=== PATIENT | female | born 1950 | race Two or more races ===

== ENCOUNTER 2019-12-11 15:19 | Inpatient (IN) | payer OTHER ==
[~2019-12-11] VITALS: Ht 160 cm; Wt 57.2 kg
--- NOTE | 2019-12-11 15:20 | NUR ---
CALE 80 FROM HOME C/O NAUSEA AND VOMITING. PT STATES SHE FEELS DIZZY AFTER VOMIT BUT NO LOSS OF CONSCIOUSNESS. NO FEVER NOTED. NO TRAUMA. NO FALL. NO SEIZURE. PT ABLE TO AMBULATE. ABLE TO MOVE ALL EXTREMITIES. DF=005HK/DL IN THE FIELD. AWAITING FOR MD RAE Addendum: 12/11/19 at 2053 by SHY ATTEMPTED TO GIVE REPORT, NURSE NOT AVAILABLE
--- NOTE | 2019-12-11 15:45 | NUR ---
md at bedside for evaluation
[2019-12-11] MEDS ORDERED: MECLIZINE HCL 12.5 MG TABLET PO ONE (16:00)
[2019-12-11] MEDS ORDERED: ONDANSETRON HCL/PF 4 MG/2 ML VIAL IVP ONE (16:00)
[2019-12-11] MEDS ORDERED: ONDANSETRON HCL/PF 4 MG/2 ML VIAL ONE (16:12)
[2019-12-11] MEDS ORDERED: MECLIZINE HCL 25 MG TABLET ONE (16:12)
--- NOTE | 2019-12-11 16:15 | NUR ---
PT OUT FOR CT
[2019-12-11 16:16] LABS: BASOPHILS % (AUTO) 0.4 % (0.0-2.0); EOSINOPHILS % (AUTO) 1.3 % (0.0-6.0); HEMATOCRIT 42 % (33-45); HEMOGLOBIN 14.1 g/dL (11.5-14.8); LYMPHOCYTES # (AUTO) 2.1 /CMM (0.8-4.8); LYMPHOCYTES % (AUTO) 20.2 % (20.0-44.0); MEAN CORPUSCULAR HGB CONC 34 g/dl (31.0-36.0); MEAN CORPUSCULAR VOLUME 93 fL (82-100); MONOCYTES # (AUTO) 0.8 /CMM (0.1-1.30); MONOCYTES % (AUTO) 7.7 % (2.0-12.0); NEUTROPHILS # (AUTO) 7.3 /CMM (1.8-8.9); NEUTROPHILS % (AUTO) 70.4 % (43.0-81.0); PLATELET COUNT (AUTO) 387 /CMM (150-450); RED BLOOD CELL COUNT(AUTO) 4.51 MIL/uL (4.0-5.2); WHITE BLOOD COUNT (AUTO) 10.3 K/uL (4.3-11.0)
[2019-12-11 16:56] LABS: CALCIUM, SERUM 9.9 mg/dL (8.5-10.1); CARBON DIOXIDE 25 mmol/L (21-32); CHLORIDE 103 mmol/L (98-107); CREATININE 1.3 mg/dL (0.6-1.3); GLUCOSE 153 mg/dL (74-106); POTASSIUM 3.5 mmol/L (3.5-5.1); SODIUM SERUM 140 mmol/L (136-145); UREA NITROGEN, BLOOD 21 mg/dL (7-18)
[2019-12-11 17:03] LABS: ALANINE AMINOTRANSFERASE 36 U/L (12-78); ALBUMIN 4.2 g/dL (3.4-5.0); ALKALINE PHOSPHATASE 70 U/L (46-116); ASPARTATE AMINOTRANSFERASE 29 U/L (15-37); BILIRUBIN,DIRECT 0.1 mg/dL (0.0-0.2); BILIRUBIN,TOTAL 0.4 mg/dL (0.2-1.0); TOTAL PROTEIN, SERUM 7.9 g/dL (6.4-8.2)
[2019-12-11] MEDS ORDERED: GLIP10TA11 PO (17:26)
[2019-12-11] MEDS ORDERED: ASPI-1169 PO (17:26)
[2019-12-11] MEDS ORDERED: FENO145T21 PO (17:26)
[2019-12-11] MEDS ORDERED: OMEP20CA15 PO (17:26)
[2019-12-11] MEDS ORDERED: BENA40TA8 PO (17:26)
[2019-12-11] MEDS ORDERED: AMLO2.5T4 PO (17:26)
[2019-12-11] MEDS ORDERED: HYDR12.55 PO (17:26)
[2019-12-11] MEDS ORDERED: METF-442 PO (17:26)
[2019-12-11] MEDS ORDERED: MAGNESIUM HYDROXIDE 30 ML UDC PO PRN (18:00)
[2019-12-11] MEDS ORDERED: ACETAMINOPHEN 325 MG TABLET PO PRN (18:00)
[2019-12-11] MEDS ORDERED: MAG HYDROX/AL HYDROX/SIMETH 30 ML UDC PO PRN (18:00)
[2019-12-11] MEDS ORDERED: MORPHINE SULFATE INJ 2 MG/ML DISP.SYRIN IV PRN (18:00)
[2019-12-11] MEDS ORDERED: ENOXAPARIN SODIUM 40 MG/0.4 ML DISP.SYRIN SQ SCH (18:00)
[2019-12-11] MEDS ORDERED: ONDANSETRON HCL/PF 4 MG/2 ML VIAL IVP PRN (18:00)
[2019-12-11] MEDS ORDERED: MECLIZINE HCL 12.5 MG TABLET PO PRN (18:00)
[2019-12-11] MEDS ORDERED: Z GUARD REMEDY 2 OZ OINT TP PRN (18:00)
[2019-12-11] MEDS ORDERED: HYDROCODONE/APAP 5/325MG TABLET PO PRN (18:00)
[2019-12-11] MEDS ORDERED: DEXTROSE 50%-WATER 50 ML DISP.SYRIN IV PRN (18:00)
--- NOTE | 2019-12-11 18:07 | NUR ---
covid swab test collected and sent to lab
--- NOTE | 2019-12-11 18:58 | NUR ---
LAB CALLED PT COVID NEG (-)
--- NOTE | 2019-12-11 20:02 | NUR ---
ATTEMPTED TO GIVE REPORT. NURSE NOT AVAILABLE
--- NOTE | 2019-12-11 20:30 | NUR ---
ATTEMPTED TO GIVE REPORT. NO ANSWER
--- NOTE | 2019-12-11 20:35 | NUR ---
US AT BEDSIDE IN PROGRESS
--- NOTE | 2019-12-11 21:04 | NUR ---
report given to angelina
--- NOTE | 2019-12-11 21:04 | NUR ---
Received report from YASH Ruiz for MARY.
--- NOTE | 2019-12-11 21:08 | NUR ---
RADIO RECORDER NOTE: Rec'd pt via valeria accompanied by RN and EMT. Pt ambulated to bed, w/ steady gait. Admit dx: near syncope. Pt A&Ox4. On room air, O2 sat WNL. Breathing even and unlabored. No SOB or resp distress noted. On tele monitor showing SR. No skin issues noted. IV site on right antecubital #18 patent and flushed. Dressing c/d/i. Oriented to room and call light. Pt has jewelry, credit cards and $435 in lobo. Pt refusing to put belongings in safe, stated "I want to keep them with me." Advised pt to keep belongings in the safe for safekeeping but continued to refuse. Charge nurse aware. Safety measures in place. Will continue to monitor. Addendum: 12/11/19 at 2228 by THA LIANG RN Pt also noted to have medications from home. Refusing to put in safe. Pt aware that she should not take these medications while she is in the hospital, confirmed understanding.
--- NOTE | 2019-12-11 21:12 | NUR ---
pt was transferred to the first floor under ACLS
[2019-12-11] MEDS: ENOXAPARIN SODIUM 40 MG/0.4 ML DISP.SYRIN SQ SCH (21:39)
[2019-12-11] MEDS: BLOOD SUGAR DIAGNOSTIC 1 EACH STRIP IN SCH (21:39)
[2019-12-11] MEDS: INSULIN REGULAR, HUMAN 100 UNIT/ML 3 ML VIAL SQ PRN (21:44)
--- NOTE | 2019-12-11 21:44 | NUR ---
RN NOTE: Pt's accucheck: 141, refused insulin per sliding scale. Stated "I do not take insulin at home and I don't want it here." Explained risks and benefits x3 and continued refusal.
[2019-12-11 22:12] VITALS: BP 137/76
[2019-12-12] VITALS (9 sets, daily range): BP systolic 105–140; BP diastolic 52–94
[2019-12-12] MEDS: IV NS 0.9% 1,000 ML IV PRN ×3 (00:13→22:32)
--- NOTE | 2019-12-12 03:06 | NUR ---
RN NOTE: Pt asking for sleeping pill. Explained to pt that it is too late to give a sleeping pill at this time. Pt very adamant stating "I cannot sleep". Paged Dr. Brasher, awaiting reply. Addendum: 12/12/19 at 0318 by THA LIANG RN Spoke w/ Dr. Brasher who said "ok to give". Will administer as ordered.
[2019-12-12] MEDS: TEMAZEPAM 15 MG CAPSULE PO PRN ×2 (03:20→23:54)
--- NOTE | 2019-12-12 04:05 | NUR ---
RN NOTE: Per Denis Archer NP H&P, orthostatic vs to be checked. 0400 VS: Layin/62 Sittin/67 Standin/83
[2019-12-12 06:22] LABS: BASOPHILS % (AUTO) 0.7 % (0.0-2.0); EOSINOPHILS % (AUTO) 1.9 % (0.0-6.0); HEMATOCRIT 37 % (33-45); HEMOGLOBIN 12.6 g/dL (11.5-14.8); LYMPHOCYTES # (AUTO) 2.8 /CMM (0.8-4.8); LYMPHOCYTES % (AUTO) 38.9 % (20.0-44.0); MEAN CORPUSCULAR HGB CONC 34 g/dl (31.0-36.0); MEAN CORPUSCULAR VOLUME 92 fL (82-100); MONOCYTES # (AUTO) 0.7 /CMM (0.1-1.30); MONOCYTES % (AUTO) 9.2 % (2.0-12.0); NEUTROPHILS # (AUTO) 3.5 /CMM (1.8-8.9); NEUTROPHILS % (AUTO) 49.3 % (43.0-81.0); PLATELET COUNT (AUTO) 313 /CMM (150-450); RED BLOOD CELL COUNT(AUTO) 4.01 MIL/uL (4.0-5.2); WHITE BLOOD COUNT (AUTO) 7.1 K/uL (4.3-11.0)
--- NOTE | 2019-12-12 06:50 | NUR ---
RN CLOSING NOTES: Pt remains stable throughout shift. Remains on room air, breathing even and unlabored. No SOB or resp distress noted throughout shift. SR on tele monitor. RAC#18 patent and infusing NS at 125ml/hr. Dressing c/d/i. Safety measures in place. Will endorse to oncoming nurse for MARY.
[2019-12-12 06:55] LABS: THYROID STIMULATING HORMONE 2.863 uIU/mL (0.358-3.74)
--- NOTE | 2019-12-12 07:05 | NUR ---
PT ASLEEP AND EASILY AROUSABE IN BED. A/OX4. RA NO SOB. RESPIRATION EVEN AND UNLABORED. SKIN WARM AND FLUSHED. SR ON TELE. RAC RUNNING NS 125ML HR ORDERED. WILL MONITOR FOR ORTHOSTATIC, RECORD, AND REPORT NECESSARY. ALL HOSPITAL POLICY SAFETY PRECAUTIONS IMPLEMENTED.
--- NOTE | 2019-12-12 07:10 | NUR ---
PT AWAKE IN BED. A/OX4. RA NO SOB. RESPIRATION EVEN AND UNLABORED. SKIN WARM AND FLUSHED. SR ON TELE. RAC RUNNING NS 125ML HR ORDERED. VS WNL NO COMPLAINTS NO CHANGE IN STATUS NO PAIN OR SOB. ALL HOSPITAL POLICY SAFETY PRECAUTIONS IMPLEMENTED. ENDORSED TO PM RN FOR CONTINUATION OF CARE. Addendum: 12/12/19 at 2001 by JAMES JOEL RN wrong time look at 1910 for correct note time
[2019-12-12 07:25] LABS: CREATININE 0.9 mg/dL (0.6-1.3); MAGNESIUM 1.9 mg/dL (1.8-2.4); POTASSIUM 3.4 mmol/L (3.5-5.1)
--- NOTE | 2019-12-12 07:30 | NUR ---
PT REFUSES INSULIN. PT STATED "I WOULD RATHER WAIT TO TAKE MY HOME MEDICATION, I DO NOT WANT INSULIN. EDUCATION PROVIDED. PT INSISTS TO REFUSE. WILL CONTINUE TO OFFER AND EDUCATE THROUGHOUT DAY NEEDED.
[2019-12-12 08:04] LABS: PHOSPHORUS 3.9 mg/dL (2.5-4.9)
[2019-12-12] MEDS: FENOFIBRATE NANOCRYS (145 MG) 145 MG TABLET PO SCH (08:15)
[2019-12-12] MEDS: BLOOD SUGAR DIAGNOSTIC 1 EACH STRIP IN SCH ×4 (08:15→22:14)
[2019-12-12] MEDS: PANTOPRAZOLE 40 MG TABLET.DR PO SCH (08:16)
[2019-12-12] MEDS: BENAZEPRIL HCL 20 MG TABLET PO SCH (08:16)
[2019-12-12] MEDS: ASPIRIN 81 MG TAB.CHEW PO SCH (08:16)
[2019-12-12] MEDS: AMLODIPINE BESYLATE 2.5 MG TABLET PO SCH (08:33)
--- NOTE | 2019-12-12 08:34 | NUR ---
PT REFUSED ORDERED AMLODIPINE. PT STATED "I DO NOT WANT TO TAKE IT BECAUSE I ONLY WANT BENAZEPRIL FOR NOW". EDUCATED PT ON REASON FOR ORDER. PT VERBALIZED UNDERSTANDING AND REFUSES AMLODIPINE. BP 105/52. WILL CONTINUE TO MONITOR AND EDUCATE PATIENT.
--- NOTE | 2019-12-12 10:30 | NUR ---
PT TAKEN TO CT ANGIO ORDERED. CONSENT SIGNS. IV PATENT. VIA WHEELCHAIR.
[2019-12-12] MEDS ORDERED: POTASSIUM CHLORIDE 20 MEQ TAB.PRT.SR PO ONE (11:00)
[2019-12-12] MEDS ORDERED: NITROGLYCERIN 0.4 MG/TAB BOTTLE SL ONE (11:30)
[2019-12-12] MEDS ORDERED: METOPROLOL TARTRATE INJ 5 MG/5 ML AMPUL ONE ×2 (11:40→12:08)
[2019-12-12] MEDS ORDERED: NITROGLYCERIN 0.4 MG/TAB BOTTLE ONE (11:40)
[2019-12-12] MEDS: METOPROLOL TARTRATE INJ 5 MG/5 ML AMPUL IVP PRN ×4 (11:49→12:04)
[2019-12-12] MEDS ORDERED: IOHEXOL-350 100 ML VIAL IV ONE (11:50)
[2019-12-12] MEDS ORDERED: IV NS 0.9% 250 ML IV ONE (11:50)
--- NOTE | 2019-12-12 12:30 | NUR ---
PT RECEIVED FROM CT ANGIO. TOLERATED WELL. IN BED. NO COMPLAINTS.
--- NOTE | 2019-12-12 17:00 | NUR ---
PT REFUSES INSULIN. PT INSISTS TO REFUSE. WILL CONTINUE TO OFFER AND EDUCATE THROUGHOUT DAY NEEDED.
--- NOTE | 2019-12-12 19:10 | NUR ---
PT AWAKE IN BED. A/OX4. RA NO SOB. RESPIRATION EVEN AND UNLABORED. SKIN WARM AND FLUSHED. SR ON TELE. RAC RUNNING NS 125ML HR ORDERED. VS WNL NO COMPLAINTS NO CHANGE IN STATUS NO PAIN OR SOB. ALL HOSPITAL POLICY SAFETY PRECAUTIONS IMPLEMENTED. ENDORSED TO PM RN FOR CONTINUATION OF CARE.
--- NOTE | 2019-12-12 19:30 | NUR ---
RN NOTE RECEIVED PT AWAKE SITTING IN BED. PT A/OX4. ON RA NO SOB. ON TELE MONITOR CURRENTLY SR HR 70. IV TO RAC PATENT INTACT AND FLUSHING WELL. NS INFUSING AT 125 ML/HR ORDERED. PT DENIES ANY PAIN, DIZZINESS OR DISCOMFORT.BED LOCKED AND IN LOWEST POSITION, CALL LIGHT WITHIN REACH WILL CONTINUE TO MONITOR PT.
[2019-12-12] MEDS: ENOXAPARIN SODIUM 40 MG/0.4 ML DISP.SYRIN SQ SCH (20:17)
--- NOTE | 2019-12-12 22:10 | NUR ---
RN NOTE PT REFUSES INSULIN. PT INSISTS TO REFUSE. WILL CONTINUE TO OFFER AND EDUCATE PT. AWARE
[2019-12-12] MEDS: INSULIN REGULAR, HUMAN 100 UNIT/ML 3 ML VIAL SQ PRN (22:15)
[2019-12-13] VITALS: BP 125/63
[2019-12-13 04:00] VITALS: BP 127/61
--- NOTE | 2019-12-13 07:20 | NUR ---
RN NOTE NO ACUTE CHANGES PT REMAINED STABLE. NO COMPLAINTS OF DIZZINESS V/S WNL, PT AMBULATED TO REST ROOM X 2. IV PATENT INTACT AND FLUSHING WELL. PT CURRENTLY ASLEEP, CALL LIGHT WITHIN REACH, BED LOCKED AND IN LOWEST POSITION, ENDORSED TO AM RN FOR MARY.
--- NOTE | 2019-12-13 07:30 | NUR ---
RN OPENING NOTES RECEIVED PT AWAKE SITTING IN BED. PT A/OX4. ON RA NO SOB. ON TELE MONITOR CURRENTLY SR HR 80S. IV TO RAC PATENT INTACT AND FLUSHING WELL. NS INFUSING AT 125 ML/HR ORDERED. PT DENIES ANY PAIN, OR ANY DISCOMFORT. BED LOCKED AND IN LOWEST POSITION, CALL LIGHT WITHIN REACH WILL CONTINUE TO MONITOR FOR ANY CHANGE IN CONDITION.
[2019-12-13 08:00] VITALS: BP 149/58
[2019-12-13] MEDS ORDERED: POTASSIUM CHLORIDE 20 MEQ TAB.PRT.SR PO ONE (08:00)
[2019-12-13] MEDS: BLOOD SUGAR DIAGNOSTIC 1 EACH STRIP IN SCH ×2 (08:19→12:53)
[2019-12-13] MEDS: FENOFIBRATE NANOCRYS (145 MG) 145 MG TABLET PO SCH (08:29)
[2019-12-13] MEDS: PANTOPRAZOLE 40 MG TABLET.DR PO SCH (08:30)
[2019-12-13] MEDS: ENOXAPARIN SODIUM 40 MG/0.4 ML DISP.SYRIN SQ SCH (08:32)
[2019-12-13] MEDS: AMLODIPINE BESYLATE 2.5 MG TABLET PO SCH (08:33)
[2019-12-13] MEDS: ASPIRIN 81 MG TAB.CHEW PO SCH (08:33)
[2019-12-13] MEDS: BENAZEPRIL HCL 20 MG TABLET PO SCH (08:34)
[2019-12-13 08:59] LABS: BASOPHILS # (AUTO) 0.1 /CMM (0.0-0.2); BASOPHILS % (AUTO) 1.4 % (0.0-2.0); HEMATOCRIT 38 % (33-45); HEMOGLOBIN 12.7 g/dL (11.5-14.8); LYMPHOCYTES # (AUTO) 1.6 /CMM (0.8-4.8); LYMPHOCYTES % (AUTO) 29.8 % (20.0-44.0); MEAN CORPUSCULAR HGB CONC 34 g/dl (31.0-36.0); MEAN CORPUSCULAR VOLUME 93 fL (82-100); MONOCYTES # (AUTO) 0.5 /CMM (0.1-1.30); MONOCYTES % (AUTO) 8.5 % (2.0-12.0); NEUTROPHILS # (AUTO) 3.2 /CMM (1.8-8.9); NEUTROPHILS % (AUTO) 58.3 % (43.0-81.0); PLATELET COUNT (AUTO) 276 /CMM (150-450); RED BLOOD CELL COUNT(AUTO) 4.07 MIL/uL (4.0-5.2); WHITE BLOOD COUNT (AUTO) 5.5 K/uL (4.3-11.0)
[2019-12-13] MEDS: INSULIN REGULAR, HUMAN 100 UNIT/ML 3 ML VIAL SQ PRN (09:04)
[2019-12-13 09:18] LABS: ALBUMIN 3.5 g/dL (3.4-5.0); BILIRUBIN,TOTAL 0.4 mg/dL (0.2-1.0); CALCIUM, SERUM 8.5 mg/dL (8.5-10.1); CREATININE 0.9 mg/dL (0.6-1.3); MAGNESIUM 1.8 mg/dL (1.8-2.4); PHOSPHORUS 3.3 mg/dL (2.5-4.9); POTASSIUM 3.4 mmol/L (3.5-5.1); TOTAL PROTEIN, SERUM 6.8 g/dL (6.4-8.2)
[2019-12-13 12:00] VITALS: BP 136/65
== END 2019-12-13 13:50 | disposition home or self-care (01) | DRG 640 ==
LOC: ER 15:23 → TELE1 20:01
PROVIDERS: ADMIT Nurse Practitioner Acute Care; ATTEND Internal Medicine
DX: E86.0 Dehydration (principal); N17.0 Acute kidney failure with tubular necrosis; H81.10 Benign paroxysmal vertigo, unspecified ear; R55 Syncope and collapse; K21.9 Gastro-esophageal reflux disease without esophagitis; E11.9 Type 2 diabetes mellitus without complications; E78.5 Hyperlipidemia, unspecified; I10 Essential (primary) hypertension; M54.89 Other dorsalgia; I25.10 Atherosclerotic heart disease of native coronary artery without angina pectoris; Z79.84 Long term (current) use of oral hypoglycemic drugs; I95.9 Hypotension, unspecified
CPT/HCPCS: 36415; 70450-TC; 71045-TC; 75574; 80048-TC; 80053-TC; 80061-TC; 80076-TC; 82962-TC; 83735-TC; 84100-TC; 84443-TC; 84484-TC; 85025-TC; 87081-TC; 93307-TC; C9803; G0378; J1650; J1815; J2405; J3490; J7030; J7050; J8597; Q9967